=== PATIENT | female | born 1985 | race Caucasian/White ===

== ENCOUNTER 2024-08-28 17:48 | Emergency (ER) | payer OTHER, SELFPAY ==
[2024-08-28 17:49] VITALS: BP 102/64; PULSE 89; RESP 16; TEMP 37.1; O2SAT 100; BMI 23.3
--- NOTE | 2024-08-28 18:29 | EX.ED.DYSGE1 ---
HPI <SHADE Davenport - Last Filed: 08/28/24 21:28> History of Present Illness Chief Complaint: Abd Pain Narrative Narrative: 39-year-old female with no past medical history has had 2 weeks of nausea, dry heaving and epigastric pain. She states she was seen at [facility] 2 days ago and had blood work and a CT scan and was told she had a liver problem. She really cannot provide further details. She was prescribed an antibiotic and Percocet but it is not helping. She reports normal urination. She states her last bowel movement was 3 weeks ago. She denies alcohol use. She vapes. She has had a cholecystectomy and hysterectomy. PFSH <SHADE Davenport - Last Filed: 08/28/24 21:28> [facility] Medical History (Updated 08/28/24 @ 19:17 by SHADE Davenport) Ovarian cyst Drug abuse in remission Home Medications ?Medication ?Instructions ?Recorded ?Last Taken ?Type omeprazole 40 mg capsule,delayed 40 mg PO DAILY 14 days #14 caps 08/28/24 Unknown Rx release promethazine 25 mg tablet 25 mg PO Q6H PRN PRN Nausea #12 08/28/24 Unknown Rx TABLETS Allergy/AdvReac Type Severity Reaction Status Date / Time sulfamethoxazole (From Allergy Intermediate Rash Verified 08/28/24 17:50 Bactrim) trimethoprim (From Bactrim) Allergy Intermediate Rash Verified 08/28/24 17:50 morphine AdvReac Intermediate Other Verified 08/28/24 17:50 Surgical History (Updated 08/28/24 @ 18:25 by Hany Kirkland) Previous section Hx of cholecystectomy H/O: hysterectomy Social History Smoking Status: Current every day smoker tobacco type: e-cigarettes ROS <SHADE Davenport - Last Filed: 08/28/24 21:28> ROS ED ROS Narrative Constitutional: Negative for fever, chills, malaise. CVS: Negative for palpitations, chest pain, syncope. Respiratory: Negative for shortness of breath, cough. GI: Positive for abdominal pain, nausea, vomiting, constipation. No diarrhea, melena, hematochezia. : Negative for dysuria, frequency. EXAM <SHADE Davenport - Last Filed: 08/28/24 21:28> Physical Exam Narrative Exam Narrative: CONST: Patient awake sitting in bed appears in pain. EYES: Normal inspection. NECK: Normal inspection. RESP: No respiratory distress, CTAB. CVS: Regular rate and rhythm, no murmur, no gallop. ABD: Soft with epigastric tenderness, no guarding or rebound, nondistended, no hepatosplenomegaly. Back: Normal inspection, no CVA tenderness. SKIN: Color normal, no rash, warm, dry, intact. EXTREMITIES: Normal appearance, no pedal edema. NEURO: Alert and answering questions appropriately. PSYCH: Normal affect. Const Vital Signs: 08/28/24 17:49 08/28/24 18:52 08/28/24 19:00 Temperature 98.7 F 98.4 F 98.4 F Temperature Source Oral Oral Oral Pulse Rate 89 91 91 Respiratory Rate 16 18 16 Blood Pressure 102/64 102/64 102/64 Blood Pressure Mean 76 76 76 Pulse Ox 100 99 99 Oxygen Delivery Method Room Air Room Air Room Air 08/28/24 19:23 08/28/24 20:41 Temperature 98.5 F 98.4 F Temperature Source Oral Pulse Rate 92 89 Respiratory Rate 18 18 Blood Pressure 99/63 Blood Pressure Mean 75 Pulse Ox 99 99 Oxygen Delivery Method Room Air <Dr. Jesus Jovel DO - Last Filed: 08/28/24 19:23> Physical Exam Const Vital Signs: 08/28/24 17:49 08/28/24 18:52 08/28/24 19:00 Temperature 98.7 F 98.4 F 98.4 F Temperature Source Oral Oral Oral Pulse Rate 89 91 91 Respiratory Rate 16 18 16 Blood Pressure 102/64 102/64 102/64 Blood Pressure Mean 76 76 76 Pulse Ox 100 99 99 Oxygen Delivery Method Room Air Room Air Room Air 08/28/24 19:23 08/28/24 20:41 Temperature 98.5 F 98.4 F Temperature Source Oral Pulse Rate 92 89 Respiratory Rate 18 18 Blood Pressure 99/63 Blood Pressure Mean 75 Pulse Ox 99 99 Oxygen Delivery Method Room Air MDM <SHADE Davenport - Last Filed: 08/28/24 21:28> [facility] MDM Narrative Medical decision making narrative: History gathered from: patient, mom 31-year-old female sent 2 weeks of nausea and epigastric pain. She has a history of cholecystectomy and hysterectomy. She appears nontoxic and is hemodynamically stable. She has epigastric tenderness but abdomen is soft without peritoneal signs. Labs show normal WBC of 7.9, Hgb 11.4, mild hypokalemia at 3.3. Otherwise CMP and lipase are normal. I reviewed her CT scan from 08/26/2024 that [facility]. It noted prominent biliary ductal dilation but no other abnormalities and recommended correlation with laboratory testing. Her liver profile today is unremarkable and I do not feel repeat CT imaging is indicated. She is status postcholecystectomy so does not require an ultrasound. Patient had initially been treated with IV morphine and Zofran but still complained of nausea. She was given IM Phenergan with plan to p.o. challenge with potassium.Patient passed p.o. challenge. I prescribed Phenergan and PPI as I suspect this could be GERD/gastritis. Advise follow-up with PCP and discussed return precautions. External records reviewed: 08/26/[address] [place] [address] of the abdomen/pelvis with IV contrast Prominent biliary ductal dilation without obstructive lesion. Recommend correlation with laboratory testing. Recommend ERCP for further evaluation. Lab Data Attestation: I reviewed the patient's lab results. Labs: Laboratory Results - last 24 hr 08/28/24 08/28/24 18:21 18:34 WBC 7.9 RBC 3.68 L Hgb 11.4 L Hct 34.3 L MCV 93.2 MCH 31.0 MCHC 33.2 RDW Std Deviation 44.7 H RDW Coeff of Abraham 12.9 Plt Count 267 MPV 11.9 Immature Gran % (Auto) 0.400 Neut % (Auto) 78.8 H Lymph % (Auto) 12.1 L [place] % (Auto) 7.5 Eos % (Auto) 0.9 Baso % (Auto) 0.3 Absolute Neuts (auto) 6.2 Absolute Lymphs (auto) 0.95 Nucleated RBC % 0 Sodium 142 Potassium 3.3 L Chloride 111 H Carbon Dioxide 26.0 Anion Gap 6 BUN 8 Creatinine 0.60 Estim Creat Clear Calc 91.32 Est GFR (MDRD) Af Amer 144 Est GFR (MDRD) Non-Af 119 BUN/Creatinine Ratio 13.4 Glucose 84 Calcium 9.1 Total Bilirubin 0.40 AST 22 ALT 35 Alkaline Phosphatase 81 Total Protein 6.7 Albumin 3.6 Globulin 3.1 Albumin/Globulin Ratio 1.2 Lipase 19 Urine Color Yellow Urine Clarity Cloudy Urine pH 8.0 Ur Specific Lilly 1.010 Urine Protein Negative Urine Glucose (UA) Normal Urine Ketones 50 H Urine Occult Blood Negative Urine Nitrite Negative Urine Bilirubin Negative Urine Urobilinogen Normal Ur Leukocyte Esterase Negative Urine RBC 0 SEEN Urine WBC 0 SEEN Ur Squamous Epith Cells 0-5 SEEN Ur Transition Epith Cell 0-5 SEEN Amorphous Sediment 4+ Urine Bacteria 0 SEEN Urine Mucus 0 SEEN <Dr. Jesus Jovel, DO - Last Filed: 08/28/24 19:23> [facility] Lab Data Labs: Laboratory Results - last 24 hr 08/28/24 08/28/24 18:21 18:34 WBC 7.9 RBC 3.68 L Hgb 11.4 L Hct 34.3 L MCV 93.2 MCH 31.0 MCHC 33.2 RDW Std Deviation 44.7 H RDW Coeff of Abraham 12.9 Plt Count 267 MPV 11.9 Immature Gran % (Auto) 0.400 Neut % (Auto) 78.8 H Lymph % (Auto) 12.1 L [place] % (Auto) 7.5 Eos % (Auto) 0.9 Baso % (Auto) 0.3 Absolute Neuts (auto) 6.2 Absolute Lymphs (auto) 0.95 Nucleated RBC % 0 Sodium 142 Potassium 3.3 L Chloride 111 H Carbon Dioxide 26.0 Anion Gap 6 BUN 8 Creatinine 0.60 Estim Creat Clear Calc 91.32 Est GFR (MDRD) Af Amer 144 Est GFR (MDRD) Non-Af 119 BUN/Creatinine Ratio 13.4 Glucose 84 Calcium 9.1 Total Bilirubin 0.40 AST 22 ALT 35 Alkaline Phosphatase 81 Total Protein 6.7 Albumin 3.6 Globulin 3.1 Albumin/Globulin Ratio 1.2 Lipase 19 Urine Color Yellow Urine Clarity Cloudy Urine pH 8.0 Ur Specific Lilly 1.010 Urine Protein Negative Urine Glucose (UA) Normal Urine Ketones 50 H Urine Occult Blood Negative Urine Nitrite Negative Urine Bilirubin Negative Urine Urobilinogen Normal Ur Leukocyte Esterase Negative Urine RBC 0 SEEN Urine WBC 0 SEEN Ur Squamous Epith Cells 0-5 SEEN Ur Transition Epith Cell 0-5 SEEN Amorphous Sediment 4+ Urine Bacteria 0 SEEN Urine Mucus 0 SEEN Treatment and Re-Evaluation :: I have personally performed a face to face assessment of the patient and have reviewed the EDWIN Note. I performed a substantive portion of the visit including all aspects of the following. My cedeno findings include: History: Patient presents with abdominal pain that has been getting worse over the last 3 days. Patient states it is constant. Patient describes as burning. Patient states it is mainly over the upper abdomen. Patient denies any back pain. Patient does admit to some constipation. Patient admits to some nausea but denies any vomiting. Patient denies any diarrhea, melena, or hematochezia. Patient states she has been constipated for the past couple days. Patient states nothing makes her symptoms better and nothing makes them worse. Patient denies any urinary complaints. Exam: Vital signs are stable. Patient is afebrile. Patient is in no acute distress. Oral mucosa is pink and moist. Neck is supple. Trachea is midline. There is no JVD. Heart was regular rate and rhythm. Lungs are clear and equal bilaterally. Abdomen is soft. Bowel sounds are normal. There is tenderness over the upper abdomen. There is no rebound or guarding noted. Cranial nerves II through XII are intact. There are no focal motor or sensory deficits noted. Medical Decision Making: Differential diagnosis includes gastroenteritis, peptic ulcer disease, duodenal ulcer, choledocholithiasis, pancreatitis, gastritis, pyelonephritis, and urinary tract infection. CBC will be obtained to assess for leukocytosis and anemia. Comprehensive metabolic profile will be obtained to assess for hepatic function, renal function, and electrolyte abnormality. Lipase will be obtained to assess for pancreatitis. Urinalysis will be obtained to assess for urinary tract infection and hematuria. Patient was given IV fluids and Zofran. CBC was reviewed and showed a slight anemia with a hemoglobin of 11.4 and hematocrit of 34.3. Comprehensive metabolic profile was reviewed. Potassium was slightly low at 3.3. The remainder is within normal limits. Lipase was reviewed and was normal at 19. Urinalysis was reviewed. There is no evidence of urinary tract infection or hematuria. Patient was given a dose of oral potassium here. Patient was given a dose of Toradol and a dose of Protonix. Patient was advised of her findings. Patient was advised that this is most likely a viral illness. Patient was instructed to follow-up with her primary care physician for further evaluation. Patient and family understand and are agreeable with the plan. All questions were answered. Discharge Plan Triage Chief Complaint: Abd Pain ED Midlevel Provider: Shauna Thomas ED Provider: Jesus Jovel Dx/Rx/DC Orders Clinical Impression: Epigastric pain, Hypokalemia Instructions: ED Epigastric Pain Uncertain Cause Prescriptions: New omeprazole 40 mg capsule,delayed release(DR/EC) 40 mg PO DAILY 14 Days Qty: 14 0RF promethazine 25 mg tablet 25 mg PO Q6H PRN PRN (Reason: Nausea) Qty: 12 0RF Primary Care Provider: [facility] Doctor,Out of Activity Restrictions/Additional Instructions: Your blood work today overall looks normal except for mild anemia and mildly low potassium which was replaced. I reviewed your CT scan from another facility which showed no significant abnormalities. I prescribed Phenergan which is a different nausea medication and omeprazole which helps decrease stomach acid and treats gastroesophageal reflux disease. I recommend avoiding vaping, avoid alcohol, avoid NSAIDs such as ibuprofen or Aleve. Follow-up with your primary care doctor. If symptoms worsen return to the ER. Print Language: Persian Disposition Disposition: Home, Self Care Discharge Date/Time: 08/28/24 20:46
[2024-08-28 18:41] LABS: Bacteria 0 SEEN /hpf (None Seen); Mucous, Urine 0 SEEN /hpf (<or=2+); Red Blood Cells-Urine 0 SEEN /hpf (0-5); White Blood Cells 0 SEEN /hpf (0-5)
[2024-08-28] MEDS: Ondansetron 4 MG/2 ML Vial IV (18:42)
[2024-08-28] MEDS: Morphine 4 MG/ML Syringe IV (18:43)
[2024-08-28 18:50] LABS: Absolute Lymphocyte Count 0.95 X10^3/uL (0.83-4.51); Absolute Neutrophil Count 6.2 X10^3/uL (2.0-7.7); Basophil# 0.02 X10^3/uL; Basophil% 0.3 % (0-1); Eosinophil# 0.07 X10^3/uL; Eosinophils% 0.9 % (0-5); Hematocrit 34.3 % (37-47); Hemoglobin 11.4 g/dL (12.0-15.0); Lymphocyte # 0.95 X10^3/ul (0.83-4.51); Lymphocyte % 12.1 % (19-41); Mean Corp Hgb Conc 33.2 g/dL (32-36); Mean Corpuscular Volume 93.2 fL (81-99); Mean Platelet Vol. 11.9 fl (6.2-12.0); Monocyte# 0.59 X10^3/uL; Monocyte% 7.5 % (0-10); NRBC Flagged by Analyzer 0 % (0-5); Neutrophil # 6.19 X10^3/uL (2.7-7.7); Neutrophil % 78.8 % (47-70); Platelet Count 267 K/mm3 (150-450); RBC Distribution Width CV 12.9 % (11.6-14.6); RBC Distribution Width SD 44.7 fl (35.1-43.9); Red Blood Count 3.68 M/mm3 (4.2-5.4); White Blood Count 7.9 K/mm3 (4.4-11.0)
[2024-08-28 18:52] VITALS: BP 102/64; PULSE 91; RESP 18; TEMP 36.9; O2SAT 99
[2024-08-28 18:59] LABS: Color, Urine Yellow (Yellow); Glucose, Dipstick Normal (Normal); Ketone-Dipstick 50 mg/dl (Negative); Leukocyte Esterase-Dipstick Negative /ul (Negative); Nitrite-Dipstick Negative (Negative); Occult Blood-Urine Negative /ul (Negative); Protein-Dipstick Negative (Negative); Urine Bilirubin Dipstick Negative (Negative); Urine Clarity Cloudy (Clear); Urine Urobilinogen Normal (Normal)
[2024-08-28 19:00] VITALS: BP 102/64; PULSE 91; RESP 16; TEMP 36.9; O2SAT 99
[2024-08-28 19:10] LABS: ALB/GLOB Ratio 1.2 RATIO (0.9-2.4); AST(SGOT) 22 U/L (15-37); Alanine Aminotransfer ALT/SGPT 35 U/L (13-56); Albumin, Serum 3.6 g/dL (3.2-5.0); Alkaline Phosphatase 81 U/L (45-117); Anion Gap 6 (5-15); BUN 8 mg/dL (7-18); BUN/Creat Ratio 13.4 RATIO (10-20); Calcium,Total 9.1 mg/dL (8.5-10.1); Chloride 111 mmol/L (98-107); EST Glomerular Filtration Rate 119 mL/min (>60); Est Glom Filt Rate - Afr Amer 144 mL/min (>60); Estimated Creatinine Clearance 91.32 ml/min; Globulin 3.1 g/dL (2.2-4.2); Glucose 84 mg/dL (74-106); Lipase 19 U/L (13-75); Potassium 3.3 mmol/L (3.5-5.1); Protein, Total 6.7 g/dL (6.4-8.2); Sodium Level 142 mmol/L (136-145)
[2024-08-28] MEDS: Ketorolac 15 MG/ML Vial IV (19:20)
[2024-08-28 19:23] VITALS: PULSE 92; RESP 18; TEMP 36.9; O2SAT 99
[2024-08-28 19:32] LABS: Amorphous Sediment 4+; Squamous Epithelial Cells - UA 0-5 SEEN /hpf (5-10); Transitional Epithelial - Ur 0-5 SEEN /hpf (0-5)
[2024-08-28] MEDS: Pantoprazole Sodium 40 MG in 0.9% Normal Saline (100mL MB+) 100 ML 330 MG IV (19:34)
[2024-08-28] MEDS: proMETHazine 25 MG/ML Syringe 6.25 MG IM (19:34)
[2024-08-28] MEDS: Potassium Chloride Oral Tablet 20 MEQ PO (19:56)
[2024-08-28 20:41] VITALS: BP 99/63; PULSE 89; RESP 18; TEMP 36.9; O2SAT 99
== END 2024-08-28 20:46 | disposition home or self-care (01) ==
PROVIDERS: Physician Assistant; Emergency Provider Emergency Medicine; Referring Provider Emergency Medicine; Visit Provider Emergency Medicine
DX: R10.13 Epigastric pain (principal); R11.0 Nausea; K83.8 Other specified diseases of biliary tract; K59.00 Constipation, unspecified; D64.9 Anemia, unspecified; E87.6 Hypokalemia; F17.290 Nicotine dependence, other tobacco product, uncomplicated; Z88.2 Allergy status to sulfonamides; Z88.1 Allergy status to other antibiotic agents; Z90.49 Acquired absence of other specified parts of digestive tract; Z90.710 Acquired absence of both cervix and uterus
CPT/HCPCS: 80053; 81001; 83690; 85025; 96365; 96372; 96375; 99283; A4216; J2405